=== PATIENT | male | born 1940 | race Caucasian/White ===

== ENCOUNTER 2024-10-15 11:01 | Emergency (ER) | payer MEDICARE ==
[~2024-10-15] VITALS: Ht 177.8 cm; Wt 91.0 kg
[2024-10-15 11:08] VITALS: TEMP 36.9; O2SAT 99
[2024-10-15] MEDS ORDERED: NAPR-679 MT (13:58)
[2024-10-15] MEDS: NAPROXEN 375MG TABLET PO ONE (13:59)
[2024-10-15 14:14] VITALS: BP 135/78; PULSE 75; RESP 19; O2SAT 99
== END 2024-10-15 14:12 | disposition home or self-care (01) ==
LOC: ER 11:01
DX: M13.841 Other specified arthritis, right hand (principal); E78.00 Pure hypercholesterolemia, unspecified; I10 Essential (primary) hypertension; M10.9 Gout, unspecified; Z79.1 Long term (current) use of non-steroidal anti-inflammatories (NSAID); Z95.1 Presence of aortocoronary bypass graft
CPT/HCPCS: 93922; 99284